=== PATIENT | male | born 1935 | race Caucasian/White ===

== ENCOUNTER 2020-05-20 17:52 | Emergency (ER) | payer MEDICARE, OTHER ==
[~2020-05-20] VITALS: Ht 170.2 cm; Wt 86.8 kg
[2020-05-20 18:32] LABS: BASO # 0.2 x10^3/uL (0.0-0.2); BASO % 2 % (0-3); EOS # 0.8 x10^3/uL (0.0-0.7); EOS % 6 % (0-3); HEMOGLOBIN 8.6 g/dL (13.0-17.5); LYMPH # 1.5 x10^3/uL (1.0-4.8); LYMPH % 12 % (24-48); MEAN CORPUSCULAR HEMOGLOBIN 24 pg (25-35); MEAN CORPUSCULAR HGB CONC 32 g/dL (31-37); MEAN CORPUSCULAR VOLUME 75 fL (79-100); MONO # 1.6 x10^3/uL (0.0-1.1); MONO % 12 % (0-9); NEUT # 9.1 x10^3/uL (1.8-7.7); NEUT % 69 % (31-73); PLATELET COUNT 510 x10^3/uL (140-400); RED BLOOD COUNT 3.58 x10^6/uL (4.30-5.70); RED CELL DISTRIBUTION WIDTH 15.2 % (11.5-14.5); WHITE BLOOD COUNT 13.3 x10^3/uL (4.0-11.0)
[2020-05-20 18:41] LABS: PROTHROMBIN TIME PATIENT 13.1 SEC (11.7-14.0)
[2020-05-20 18:42] LABS: CALCIUM 8.8 mg/dL (8.5-10.1); CREATININE 1.9 mg/dL (0.7-1.3); GFR 33.9; POTASSIUM 4.3 mmol/L (3.5-5.1)
--- NOTE | 2020-05-20 18:47 | RAD ---
CT scan of the head without contrast 05/20/2020 Clinical History: Altered mental status. Technique: Unenhanced, contiguous, 5 mm axial sections were obtained through the head. One or more of the following individualized dose reduction techniques were utilized for this study: 1. Automated exposure control. 2. Adjustment of the mA and/or kV according to patient size. 3. Use of iterative reconstruction technique. Findings: There is generalized parenchymal atrophy. Areas of decreased attenuation are seen within the periventricular and subcortical white matter of both cerebral hemispheres consistent with areas of small vessel ischemic disease. No acute parenchymal abnormality is seen. No extra-axial fluid collection is noted. No skull fracture is seen. Complete opacification of the visualized maxillary sinuses due to mucosal thickening is noted. Mild to moderate mucosal thickening ethmoid air cells and sphenoid sinus is seen. Complete opacification of the right frontal sinus due to mucosal thickening and/or fluid is noted. Impression: No acute intracranial abnormality is seen. Electronically signed by: Boyd Joseph MD (05/20/2020 6:44 PM) [id number]
[2020-05-20 18:48] LABS: ALBUMIN 3.6 g/dL (3.4-5.0); ALBUMIN/GLOBULIN RATIO 0.9 (1.0-1.7); MAGNESIUM 2.1 mg/dL (1.8-2.4); TOTAL BILIRUBIN 0.3 mg/dL (0.2-1.0); TOTAL PROTEIN 7.4 g/dL (6.4-8.2)
--- NOTE | 2020-05-20 19:05 | RAD ---
EXAM: Chest, single view. HISTORY: Weakness. COMPARISON: None. FINDINGS: A frontal view of the chest is obtained. There is suspected bilateral basilar atelectasis. There is a prominent cardiac silhouette. There is no consolidation or pneumothorax. IMPRESSION: Suspected bilateral basilar atelectasis. Electronically signed by: Marilou Cleaning MD (05/20/2020 7:02 PM) [facility]
[2020-05-20 19:10] LABS: BILIRUBIN,URINE NEGATIVE (NEG); CLARITY,URINE CLOUDY; COLOR,URINE YELLOW; NITRITE,URINE NEGATIVE (NEG); PH,URINE 6.5 (<5.0-8.0); PROTEIN,URINE NEGATIVE (NEG-TRACE); UROBILINOGEN,URINE 0.2 mg/dL (0.2 mg/dL)
--- NOTE | 2020-05-20 19:22 | PHYS DOC ---
Past Medical History Past Medical History: Anemia, Constipation, Dementia, Depression, High Cholesterol, Hypertension, Hypothyroid, Pneumonia, Other Additional Past Medical Histor: PARKINSONS Past Medical History Limited secondary to dementia Past Surgical History: No Surgical History Past Surgical History Limited secondary to dementia Smoking Status: Former Smoker Alcohol Use: None Drug Use: None Social History Limited secondary to dementia General Adult EDM: Chief Complaint: WEAKNESS/GENERALIZED HPI: HPI: Patient is a 85 year old male with past medical history of dementia and parkinsonism presents with report of near- syncopal episode today while attempted to obtain urine sample. Spouse reports went to urgent care because patient was weaker than normal. Had attempted to get urine sample when patient acted "frozen". Spouse reports symptoms have since improved back to baseline. Reports patient hadn't slept all last night too. Urgent care physician sent to the ER for further care and evaluation. No history of known fever. No history of nausea or vomiting. Patient did not appear to lose consciousness. History of present illness limited secondary to dementia Review of Systems: Review of Systems: Review of systems limited secondary to dementia Allergies: Allergies: Allergies Coded Allergies Type Severity Reaction Last Updated Verified No Known Drug Allergies 05/20/20 No Physical Exam: PE: Constitutional: Well developed, well nourished, no acute distress, non-toxic appearance HENT: Normocephalic, atraumatic Eyes: PERRL, EOMI, conjunctiva normal, no discharge, no nystagmus Neck: Normal range of motion, no tenderness, supple Lungs & Thorax: No respiratory distress, equal chest rise and fall Skin: Warm, dry, no erythema, no rash Extremities: No tenderness, ROM intact, BLE 2+ edema Neurologic: Alert and oriented X name only, confusion but with help will folllow commands, resting tremor, no focal deficits noted Psychologic: Affect normal, judgment abnormal Current Patient Data: Labs: Laboratory Tests Test 05/20/20 18:20 White Blood Count 13.3 x10^3/uL (4.0-11.0) H Red Blood Count 3.58 x10^6/uL (4.30-5.70) L Hemoglobin 8.6 g/dL (13.0-17.5) L Hematocrit 27.0 % (39.0-53.0) L Mean Corpuscular Volume 75 fL (79-100) L Mean Corpuscular Hemoglobin 24 pg (25-35) L Mean Corpuscular Hemoglobin Concent 32 g/dL (31-37) Red Cell Distribution Width 15.2 % (11.5-14.5) H Platelet Count 510 x10^3/uL (140-400) H Neutrophils (%) (Auto) 69 % (31-73) Lymphocytes (%) (Auto) 12 % (24-48) L Monocytes (%) (Auto) 12 % (0-9) H Eosinophils (%) (Auto) 6 % (0-3) H Basophils (%) (Auto) 2 % (0-3) Neutrophils # (Auto) 9.1 x10^3/uL (1.8-7.7) H Lymphocytes # (Auto) 1.5 x10^3/uL (1.0-4.8) Monocytes # (Auto) 1.6 x10^3/uL (0.0-1.1) H Eosinophils # (Auto) 0.8 x10^3/uL (0.0-0.7) H Basophils # (Auto) 0.2 x10^3/uL (0.0-0.2) Prothrombin Time 13.1 SEC (11.7-14.0) Prothrombin Time INR 1.0 (0.8-1.1) Activated Partial Thromboplast Time 28 SEC (24-38) Sodium Level 135 mmol/L (136-145) L Potassium Level 4.3 mmol/L (3.5-5.1) Chloride Level 102 mmol/L (98-107) Carbon Dioxide Level 25 mmol/L (21-32) Anion Gap 8 (6-14) Blood Urea Nitrogen 21 mg/dL (8-26) Creatinine 1.9 mg/dL (0.7-1.3) H Estimated GFR (Cockcroft-Gault) 33.9 BUN/Creatinine Ratio 11 (6-20) Glucose Level 137 mg/dL (70-99) H Lactic Acid Level 1.2 mmol/L (0.4-2.0) Calcium Level 8.8 mg/dL (8.5-10.1) Magnesium Level 2.1 mg/dL (1.8-2.4) Total Bilirubin 0.3 mg/dL (0.2-1.0) Aspartate Amino Transferase (AST) 19 U/L (15-37) Alanine Aminotransferase (ALT) 19 U/L (16-63) Alkaline Phosphatase 104 U/L (46-116) Ammonia 12 mcmol/L (11-34) Creatine Kinase 121 U/L (39-308) Creatine Kinase MB (Mass) 1.4 ng/mL (0.0-3.6) Creatine Kinase MB Relative Index 1.2 % (0-4) Troponin I Quantitative < 0.017 ng/mL (0.000-0.055) Total Protein 7.4 g/dL (6.4-8.2) Albumin 3.6 g/dL (3.4-5.0) Albumin/Globulin Ratio 0.9 (1.0-1.7) L Laboratory Tests 05/20/20 18:20 Laboratory Tests 05/20/20 18:20 Vital Signs: Vital Signs Date Time Temp Pulse Resp B/P (MAP) Pulse Ox O2 Delivery O2 Flow Rate FiO2 05/20/20 19:04 99.2 73 18 145/61 (89) 100 Room Air 99.2 EKG: EKG: @1811 NSR at 80bpm, NO ST elevation, QRS 84ms, QT/QTc 356/414ms Radiology/Procedures: Radiology/Procedures: PROCEDURE: CT HEAD WO CONTRAST CT scan of the head without contrast 05/20/2020 Clinical History: Altered mental status. Technique: Unenhanced, contiguous, 5 mm axial sections were obtained through the head. One or more of the following individualized dose reduction techniques were utilized for this study: 1. Automated exposure control. 2. Adjustment of the mA and/or kV according to patient size. 3. Use of iterative reconstruction technique. Findings: There is generalized parenchymal atrophy. Areas of decreased attenuation are seen within the periventricular and subcortical white matter of both cerebral hemispheres consistent with areas of small vessel ischemic disease. No acute parenchymal abnormality is seen. No extra-axial fluid collection is noted. No skull fracture is seen. Complete opacification of the visualized maxillary sinuses due to mucosal thickening is noted. Mild to moderate mucosal thickening ethmoid air cells and sphenoid sinus is seen. Complete opacification of the right frontal sinus due to mucosal thickening and/or fluid is noted. Impression: No acute intracranial abnormality is seen. Electronically signed by: Boyd Joseph MD (05/20/2020 6:44 PM) [id number] PROCEDURE: PORTABLE CHEST 1V EXAM: Chest, single view. HISTORY: Weakness. COMPARISON: None. FINDINGS: A frontal view of the chest is obtained. There is suspected bilateral basilar atelectasis. There is a prominent cardiac silhouette. There is no consolidation or pneumothorax. IMPRESSION: Suspected bilateral basilar atelectasis. Electronically signed by: Marilou Cleaning MD (05/20/2020 7:02 PM) [facility] Course & Med Decision Making: Course & Med Decision Making Pertinent Labs and Imaging studies reviewed. (See chart for details) Patient with past medical history of parkinsonism as well as dementia presents after evaluation at urgent care with concern for weakness and possible near syncopal episode. Patient without focal deficit on exam. CT head without acute process. Chest x-ray with some atelectasis. Labs obtained and posted to chart. WBC slightly elevated. Patient noted to have anemia down to 8.6. Patient also with creatinine of 1.9. Unable to obtain chronicity secondary to no prior labs per [facility] review. EKG stable. Patient offered admission for further evaluation and treatment. Spouse requests for patient to go home and will follow with his PCP Dr. Villasenor. Attempted to notify Dr. Villasenor regarding. Phone message left on cell. Discussed findings and plan with family, who acknowledges understanding and agreement. Marcelle Disclaimer: Marcelle Disclaimer: This electronic medical record was generated, in whole or in part, using a voice recognition dictation system. Departure Departure Impression: Primary Impression: Weakness Additional Impressions: Altered mental status Qualified Codes: R41.82 - Altered mental status, unspecified Dementia Qualified Codes: F03.90 - Unspecified dementia without behavioral disturbance Leukocytosis Qualified Codes: D72.829 - Elevated white blood cell count, unspecified Anemia Qualified Codes: D64.9 - Anemia, unspecified Renal insufficiency Disposition: HOME, SELF-CARE Condition: STABLE Referrals: FEI VILLASENOR MD Patient Instructions: Anemia, FAQs, Chronic Renal Insufficiency, Dementia, [id number], Leukocytosis, Weakness, [id number] Additional Instructions: Please follow closely with your doctor for further evaluation. Return for worsening or change in condition. Justicifation of Admission Dx: Justifications for Admission: Justification of Admission Dx: N/A Altered Mental Status: Altered Mental Status JUNE BILLINGSLEY DO May 20, 2020 19:22
[2020-05-20 19:24] LABS: BACTERIA,URINE 0 /HPF (0-FEW); HYALINE CASTS, URINE OCCASIONAL /HPF; RBC,URINE OCC /HPF (0-2)
[2020-05-20 20:00] VITALS: BP 128/59
--- NOTE | 2020-05-22 15:19 | EKG ---
[facility] [address] [place] [address] Test Date: 2020-05-20 Test Time: 18:11:06 Pat Name: ABNER RUBIO Department: Room: Gender: M Slitting Machine Operator: : [id number] Requested By: JUNE BILLINGSLEY Order Number: [id number] Reading MD: Measurements Intervals [place] Rate: 80 P: 0 DC: 224 QRS: -1 QRSD: 84 T: 39 QT: 356 QTc: 414 Interpretive Statements SINUS RHYTHM PROLONGED DC INTERVAL LEFTWARD AXIS R-S TRANSITION ZONE IN V LEADS DISPLACED TO THE RIGHT ABNORMAL ECG RI6.02 No previous ECG available for comparison
== END 2020-05-20 20:41 | disposition home or self-care (01) ==
LOC: ER 17:52
DX: D72.829 Elevated white blood cell count, unspecified (principal); F03.90 Unspecified dementia, unspecified severity, without behavioral disturbance, psychotic disturbance, mood disturbance, and anxiety; R41.82 Altered mental status, unspecified; R53.1 Weakness; R55 Syncope and collapse; D64.9 Anemia, unspecified; N28.9 Disorder of kidney and ureter, unspecified; E78.00 Pure hypercholesterolemia, unspecified; F32.9 Major depressive disorder, single episode, unspecified; I10 Essential (primary) hypertension; E03.9 Hypothyroidism, unspecified; Z87.891 Personal history of nicotine dependence
CPT/HCPCS: 36415; 70450; 71045; 80053; 81001; 82140; 82553; 83605; 83735; 84484; 85025; 85610; 85730; 93005; 99285